=== PATIENT | male | born 1945 | race Caucasian/White ===

== ENCOUNTER 2020-05-13 08:24 | Emergency (ER) | payer BC ==
[~2020-05-13] VITALS: Ht 175.3 cm; Wt 72.6 kg
[2020-05-13 08:35] VITALS: BP_SYST 139; BP_SYST 158; BP_DIAS 80; BP_DIAS 87
--- NOTE | 2020-05-13 08:45 | NUR ---
PATIENT PRESENTED IN THE ER TRANSPORTED BY HIS BROTHER ARNOLD FROM [facility]. PATIENT'S BROTHER REPORTS THAT PATIENT HAS NOT BEEN SLEEPING, HE HAS BEEN HALLUCINATING, AND HAS BEEN HOPELESS OVER THE PAST 2 MONTHS. PATIENT REPORTS THAT HE IS HOPELESS ABOUT THE PARKINSONSONS DISEASE AND HIS SYMPTOMS HAVE WORSENED BUT HE DENIES SUICIDAL IDEATION OR PLANS TO HARM SELF. HE IS ORIENTED X3 AND IS REFUSING TO BE ADMITTED ON A VOLUNTARY BASIS. BRITTANI ACEVES/ DR. CEE NOTIFIED BY AYESHA NUNO RN TO DISCUSS GROUNDS FOR COURT COMMITTMENT. DR. CEE WILLING TO ACCEPT PATIENT ON A VOLUNTARY BASIS AND UNWILLING TO COMMIT INVOLUNTARY. THIS NURSE SPOKE TO PATIENT'S BROTHER ARNOLD ABOUT RECOMMENDATIONS FROM DR. CEE , THESE ARE: FOLLOW UP WITH PCP FOR POSSIBLE PARKINSON MEDICATION ADJUSTMENT AND REFERRAL TO OUTPATIENT MENTAL HEALTH SERVICES.
--- NOTE | 2020-05-13 08:50 | ER.PDOC ---
General Chief Complaint: Requesting Medical Care Stated Complaint: MEDICAL CLEARANCE Time seen by MD: 08:48 Source: family Exam Limitations: clinical condition History of Present Illness Initial Comments Medical clearance to go to [facility] for anxiety, panic attacks and Parkinson disease. Timing/Duration: week Severity: moderate Allergies: Coded Allergies: No Known Allergies (Unverified , 05/13/20) Review of Systems Constitutional: no symptoms reported EENTM: no symptoms reported Respiratory: no symptoms reported Cardiovascular: no symptoms reported Gastrointestinal: no symptoms reported Psychiatric/Neurological: see HPI All Other Systems: Reviewed and Negative Physical Exam General Appearance: No acute distress, Alert Neck: Non-Tender, Full Range of Motion, Supple, Normal Inspection Respiratory: chest non-tender, lungs clear, normal breath sounds, no respiratory distress, no accessory muscle use Cardiovascular: Normal Peripheral Pulses, Regular Rate, Rhythm, No Edema, No Gallop, No JVD, No Murmur Gastrointestinal: Normal Bowel Sounds, No Organomegaly, No Pulsatile Mass, Non Tender, Soft Extremities: Non-Tender, Normal Range of Motion, No Evidence of Trauma, No Edema Neurological/Psychiatric: Alert, Normal Mood/Affect, Calm, 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, Oriented x 3 Appearance/Memory/Insight: Appropriate Appearance Behavior/Eye Contact/Speech: Cooperative, Good Eye Contact Thoughts/Hallucinations: No Apparent Hallucination Skin: Normal Color Results/Orders Results/Orders Orders - ABRAHAM VALLE MD Cbc With Auto Diff (05/13/20 08:45) Comprehensive Metabolic Panel (05/13/20 08:45) Urinalysis (05/13/20 08:45) Thyroid Stimulating Horm(Ml) (05/13/20 08:45) Drug Scrn Med W Confirmation (05/13/20 08:45) Vitamin D, 25 Hydroxy (05/13/20 08:45) RPR (05/13/20 08:45) Hemoglobin A1c(Ml) (05/13/20 08:45) Lipid Panel(Ml) (05/13/20 08:45) Troponin I (05/13/20 08:45) Creatine Kinase (05/13/20 08:45) Creatine Kinase Mb (05/13/20 08:45) Ekg-Routine (05/13/20 08:45) Vital Signs Date Time Temp Pulse Resp B/P (MAP) Pulse Ox O2 Delivery O2 Flow Rate FiO2 12/5/20 09:34 82 18 145/71 (95) 98 Room Air 05/13/20 08:54 97.5 84 18 139/87 (104) 97 Room Air 05/13/20 08:35 97.5 84 18 05/13/20 08:35 97.5 87 18 97 Laboratory Tests Test 05/13/20 08:35 05/13/20 09:11 White Blood Count 9.7 10^3/uL (4.5-11.0) Red Blood Count 4.16 10^6/uL (4.50-5.90) L Hemoglobin 12.8 g/dL (13.9-16.3) L Hematocrit 38.6 % (37.0-53.0) Mean Corpuscular Volume 92.8 fL (78-100) Mean Corpuscular Hemoglobin 30.8 pg (26-34) Mean Corpuscular Hemoglobin Concent 33.2 g/dL (33-36.5) Red Cell Distribution Width 12.5 % (11.5-14.5) Platelet Count 287 10^3/uL (150-400) Mean Platelet Volume 9.1 fL (7.8-11.0) Neutrophils (%) (Auto) 79.2 % (41.0-85.0) Lymphocytes (%) (Auto) 10.6 % (24.0-44.0) L Monocytes (%) (Auto) 9.4 % (5.0-12.0) Neutrophils # (Auto) 7.7 10^3/uL (1.8-7.7) Lymphocytes # (Auto) 1.02 10^3/uL1 (1.0-4.8) Monocytes # (Auto) 0.9 10^3/uL (0.3-0.8) H Absolute Immature Granulocyte (auto 0.02 10^3 u/L (0-2) Absolute Eosinophils (auto) 0.0 10^3/uL (0.0-0.2) Immature Granulocytes % 0.20 % (0.00-0.50) Eosinophils % 0.4 % (0.0-5.0) Basophils % 0.2 % (0.0-0.2) Basophils # 0.0 10^3/uL (0.0-0.1) Sodium Level 136 mmol/L (132-145) Potassium Level 4.9 mmol/L (3.6-5.2) Chloride Level 101.0 mmol/L (96-109) Carbon Dioxide Level 25.2 mmol/L (20.0-32) Anion Gap 14.7 Blood Urea Nitrogen 38 mg/dL (7-18) H Creatinine 2.46 mg/dL (0.59-1.40) *H Estimated GFR () 31.3 (>/=60) Est GFR (CKD-EPI)(Non-Afr Croatian) 25.8 (>/=60) BUN/Creatinine Ratio 15.0 Glucose Level 102 mg/dL (70-110) Calcium Level 9.0 mg/dL (8.4-10.5) Total Bilirubin 0.5 mg/dL (0.2-1.0) Aspartate Amino Transferase (AST) 35 U/L (0-35) Alanine Aminotransferase (ALT) 30 U/L (12-78) Alkaline Phosphatase 99 U/L (50-136) Total Creatine Kinase 541 U/L (39-308) H Creatine Kinase MB 5.8 ng/mL (0.5-3.6) H Troponin I < 0.02 ng/mL (0.00-0.05) Total Protein 7.5 g/dL (6.4-8.2) Albumin 4.3 g/dL (3.4-5.0) Globulin 3.2 Albumin/Globulin Ratio 1.343 Triglycerides Level 38 mg/dL (20-200) Cholesterol Level 125 mg/dL (120-240) LDL Cholesterol, Calculated 52.4 VLDL Cholesterol, Calculated 7.6 HDL Cholesterol 65 mg/dL (32-96) Cholesterol Ratio (LDL/HDL) 0.8 Cholesterol/HDL Ratio [id number] Thyroid Stimulating Hormone (TSH) 2.258 mIU/mL (0.358-3.740) Urine Opiates Screen NEGATIVE (c/o300ng/mL) Urine Methadone Screen NEGATIVE (c/o300ng/mL) Urine Barbiturates Screen NEGATIVE (c/o200ng/mL) Urine Phencyclidine Screen NEGATIVE (c/o 25ng/mL) Ur Amphetamine/Methamphetamine NEGATIVE (uy2839rk/mL) Urine MDMA Screen (Ecstasy) NEGATIVE (c/o300ng/mL) Urine Benzodiazepines Screen NEGATIVE (c/o200ng/mL) Urine Cocaine Metabolite Screen NEGATIVE (c/o300ng/mL) Ur Tetrahydrocannabinol (THC) Scrn NEGATIVE (c/o 50ng/mL) Urine Collection Type VOID Urine Color YELLOW (YELLOW) Urine Appearance CLEAR (CLEAR) Urine Bilirubin NEGATIVE MG/DL (NEGATIVE) Urine Ketones LARGE (NEGATIVE) H Urine Specific [place] >1.030 (1.005-1.035) Urine pH 6.0 (5.0-6.0) Urine Protein NEGATIVE (NEGATIVE) Urine Urobilinogen 0.2 (NEGATIVE) Urine Nitrate NEGATIVE (NEGATAIVE) Urine Leukocyte Esterase NEGATIVE (NEGATIVE) Urine Blood NEGATIVE (NEGATIVE) Urine Glucose NORMAL (NEGATIVE) Hemoglobin A1c 6.5 % (0-5.7) H Progress Progress Patient was declined by the Psychiatrist to be admitted to U. I wanted to admit him to medical floor for ANGELICA, dehydration and rhabdomyolysis and he refused. I wanted to bolus him before he goes home and he declined. He signed and left against medical advice. He understands that leaving AMA may result in worsening condition and . I told him that he should return at any time he feels worse. EKG/XRAY/CT/US EKG: NSR, nonspecific ST T wave chg EKG Comments: rate 82, normal axis ER DEPART Departure Time of Disposition: 10:05 Disposition: 07 AGAINST MEDICAL ADVICE Impression: Primary Impression: ANGELICA (acute kidney injury) Additional Impressions: Dehydration Rhabdomyolysis Severe anxiety with panic Condition: Against Medical Advice Referrals: PCP,UNKNOWN (PCP) PRIMARY CARE PROVIDER Duration or Time Spent with Pa: 60 min Problem Qualifiers Additional Impressions: Rhabdomyolysis Rhabdomyolysis type: non-traumatic Qualified Codes: M62.82 - Rhabdomyolysis TORI,ABRAHAM Foss MD May 13, 2020 08:50
[2020-05-13 08:54] VITALS: BP 139/87
[2020-05-13 08:55] LABS: BASOPHIL % 0.2 % (0.0-0.2); EOSINOPHIL % 0.4 % (0.0-5.0); LYMPHOCYTES # 1.02 10^3/uL1 (1.0-4.8); LYMPHOCYTES % 10.6 % (24.0-44.0); MEAN CORP HGB 30.8 pg (26-34); MONOCYTES # 0.9 10^3/uL (0.3-0.8); MONOCYTES % 9.4 % (5.0-12.0); NEUTROPHIL # 7.7 10^3/uL (1.8-7.7); NEUTROPHILS % 79.2 % (41.0-85.0); PLATELET COUNT 287 10^3/uL (150-400); RED CELL DISTRIBUTION WIDTH 12.5 % (11.5-14.5)
--- NOTE | 2020-05-13 09:06 | PCM.EKG ---
[facility] Test Date: 2020-05-13 Test Time: 09:03:35 Pat Name: SERENA SPENCE Department: Room: Gender: M Painting Trades Worker: NAKITA : 1945 Requested By: ABRAHAM VALLE Order Number: [id number] Reading MD: Abraham VALLE Measurements Intervals [place] Rate: 82 P: 53 [place]: 185 QRS: 55 QRSD: 103 T: 72 QT: 405 QTc: 473 Interpretive Statements Sinus rhythm RSR' in V1 or V2, right VCD or RVH No previous ECG available for comparison Electronically Signed On 05-17-2020 6:42:40 STACKER STRAIGHTENER by Abraham VALLE Please click the below link to view image of tracing.
--- NOTE | 2020-05-13 09:15 | NUR ---
GABRIELE JAVIER FROM [facility] EVALUATED PT, PSYCHIATRIST NOTIFIED AND HAS STATED THAT HE WOULD ACCEPT PT IF HE WAS VOLUNTARY BUT DOES NOT WARRANT COURT PAPERS. SHE HAS DISCUSSED THIS WITH PT BROTHER.
[2020-05-13 09:23] LABS: ALANINE AMINOTRANSFERASE(ML) 30 U/L (12-78); ALKALINE PHOSPHATASE 99 U/L (50-136); ASPARTATE AMINO TRANSFERASE 35 U/L (0-35); CARBON DIOXIDE 25.2 mmol/L (20.0-32); CHOLESTEROL 125 mg/dL (120-240); GLUCOSE 102 mg/dL (70-110); HDL CHOLESTEROL 65 mg/dL (32-96)
[2020-05-13 09:32] LABS: APPEARANCE,URINE CLEAR (CLEAR); BILIRUBIN,URINE NEGATIVE (NEGATIVE); UA COLOR YELLOW (YELLOW)
[2020-05-13 09:33] LABS: UROBILINOGEN,URINE 0.2 (NEGATIVE)
[2020-05-13 09:34] VITALS: BP 145/71
[2020-05-13 10:10] VITALS: BP 148/78
--- NOTE | 2020-05-13 10:10 | NUR ---
AMA PATIENT IN NEED OF ADMISSION PER DR. VALLE. TALKED WITH PATIENT ABOUT NEED FOR ADMISSION WITH BROTHER AND DR. VALLE PRESENT. PATIENT REFUSES AND SAYS HE WILL COME BACK FRIDAY FOR TREATMENT. EDUCATED PATIENT THAT HIS RENAL FUNCTION WILL CONTINUE TO DECLINE AND WOULD BENEFIT FROM ADMISSION. PATIENT REFUSES ADMISSION AGAIN SAYING THAT HE NEEDS TO DO SOME STUFF AT HOME FIRST. BROTHER ENTERED CONVERSATION STATING, "HE ALWAYS DOES THIS AND WILL NOT ACCEPT ANY ADMISSION. WE WILL JUST LEAVE AMA IF THAT IS WHAT HE IS WANTING TO DO." PATIENT STATED, "I DON'T WANT TO STAY, I NEED TO GO HOME." DR. VALLE VERBALIZED WILL NEED TO SIGN AMA FORM IF HE IS LEAVING. AMA FORM BROUGHT TO PATIENT. PATIENT UNDERSTANDS THAT HE NEEDS ADMISSION FOR MEDICAL REASONS. PATIENT SIGNED FORM WITH BROTHER IN THE ROOM. PATIENT PLACED IN WHEELCHAIR AND [facility]. PATIENT ASSISTED INTO VEHICLE AND BUCKLED PROPERLY INTO SEAT. NO S/S OF DISTRESS NOTED.
== END 2020-05-13 10:10 | disposition left against medical advice (07) ==
LOC: ER 08:24
DX: N17.9 Acute kidney failure, unspecified (principal); M62.82 Rhabdomyolysis; F41.9 Anxiety disorder, unspecified; G20 Parkinson's disease; E86.0 Dehydration
CPT/HCPCS: 36415; 80053; 80061; 80307; 81003; 82306; 82550; 82553; 83036; 84443; 84484; 85025; 86592; 93005; 99284